=== PATIENT | female | born 1995 | race Caucasian/White ===

== ENCOUNTER 2024-08-27 14:45 | Emergency (ER) | payer MEDICAID, SELFPAY ==
--- OUTSIDE RECORDS SUMMARY | 2024-08-25 12:40 | XMS_ITS | Encounter Summary ---
Author Organization [facility] Address [address], [place] [address] Care Team Providers Care Farm Reporter Name Role Phone Unavailable Primary Care Provider Unavailabl e Reason for Visit * Reason Comments VAGINAL BLEEDING Encounter Details Date Type Department Care Team (Late st Contact Info) Description 08/25/2024 12:40 PM CDT Office Visit [facility] [address] [facility] [address] [place] [address] [place] [address], [place] [id number] Vaginal bleeding affecting early Social History Tobacco Use Types Packs/Day Years Used Date Smoking Tobacco: Never Smokeless Tobacco: Never Tobacco Cessation:Counseling Given: Not Answered Comments Yes Sex and Gender Information Value Date Recorded Sex Assigned at Not on file Legal Sex Female 12:18 PM CDT Gender Identity Not on file Sexual Orientation Not on file documented as of this encounter Last Filed Vital Signs Vital Sign Reading Time Taken Comments Blood Pressure 121/59 08/25/2024 1:12 PM CDT Pulse 69 08/25/2024 1:12 PM CDT Temperature 36.8 C (98.2 F) 08/25/2024 1:12 PM CDT Respiratory Rate 16 08/25/2024 1:12 PM CDT Oxygen Saturation 100% 08/25/2024 1:12 PM CDT Inhaled Oxygen Concentration - - Weight - - Height - - Body Mass Index - - documented in this encounter Progress Notes * Chapo Orozco MD - 08/25/2024 12:40 PM CDT Positive test a few weeks ago, has had vaginal bleeding for the past 4 days. States that she does not have abdominal pain No past medical history on file. Subject 28 years old female presented today to clinic with her , she stated she has proximally between 6-8 weeks , in the last 4 days some bleeding started very light in the last today she usesome pad to change proximally twice a day. There is slightly abdominal discomfort but no major pain, she deny any nausea vomiting, medication she take for her Crohn disease, this is her 4th pregnancyand she has 3 life baby without problem. She did not had any complication with her pregnancies the past Reviewed the system above all other negative Past medical history Crohn disease otherwise healthy Objective BP 121/59 (BP Location: Right Arm, BP Cuff Size: Regular - Long) Pulse 69 Temp 36.8 ??C (98.2 ??F) (Oral) Resp 16 LMP 05/22/2024 SpO2 100% Vital signs stable blood pressure 121/59 her pulse is 69 her respiration 16 Alert oriented pleasant she does not seems to be distress HEENT neck lung cardiovascular or appear normal Abdomen is no rebound no guarding no pain no suprapubic pressure, she deny any urgency frequency burning sensation with urination deny any constipation or diarrhea. Assessment Early with bleeding We did ultrasound Ultrasound show 6 weeks baby pretty uterine anal the only thing baby heartbeat is 62 in this decreased area is bradycardia under 100 beat. At this time there is no any other red flecks Plan Discussed doze finding with the patient, to follow-up that need with OB and also may need close ultrasound follow-up as recommended by OBGYN discussed, patient understands except that worse additional symptom concern question increase it pain or increase it bleeding go to the emergency room otherwise patient stated that is she will follow-up next week with her OB. documented in this encounter Nursing Notes * Yumiko Felix RN - 08/25/2024 12:40 PM CDT Positive test a few weeks ago, has had vaginal bleeding for the past 4 days. States that she does not have abdominal pain documented in this encounter Plan of Treatment Not on file documented as of this encounter Visit Diagnoses Diagnosis Vaginal bleeding affecting early documented in this encounter
--- OUTSIDE RECORDS SUMMARY | 2024-08-25 15:00 | XMS_ITS | Encounter Summary ---
Author Organization [facility] Address [address], [place] [address] Care Team Providers Care Urban Planner Name Role Phone Unavailable Primary Care Provider Unavailabl e Reason for Visit * Procedure/Equipment (Routine) - Incomplete Specialty Diagnoses / Procedures Referred By Gemini t Referred To Contact Diagnoses Vaginal bleeding affecting early Procedures US OB <14 Weeks W EV Single US OB < 14 [place] [address] [place] [address] Phone: tel: fax: Referral ID Status Reason Start Date Expiration Date V isits Requested Visits Authorized [id number] Incomplete 08/25/2024 11/24/2025 1 1 Encounter Details Date Type Department Care Team (Latest Contact Info) Description 08/25/2024 3:00 PM CDT Ancillary Procedure [facility] [address] [address] [address] [place] [id number] [place] [address] [place] [address] Vaginal bleeding affecting early Social History Tobacco Use Types Packs/Day Years Used Date Smoking Tobacco: Never Smokeless Tobacco: Never Comments Yes Sex and Gender Information Value Date Recorded Sex Assigned at Not on file Legal Sex Female 12:18 PM CDT Gender Identity Not on file Sexual Orientation Not on file documented as of this encounter Plan of Treatment Not on file documented as of this encounter Procedures Procedure Name Priority Date/Time Associated Diagnosis Comments US OB <14 WEEKS W EV SINGLE STAT 08/25/2024 2:33 PM CDT Vaginal bleeding affecting early documented in this encounter Results * US OB <14 Weeks W EV Single (08/25/2024 2:33 PM CDT) Anatomical Region Laterality Modality Pelvis Ultrasound Impressions 08/25/2024 2:49 PM CDT 1. Single live intrauterine measuring 6 weeks 0 days by this ultrasound. 2. heart rate of 62 beats per minute compatible with bradycardia. [place] consensus criteria for bradycardia is <100 bpm at 6-14 weeks and <120 bpm at 15-20 weeks gestation. Maternal medicine consultation is recommended for bradycardia over 14 weeks. Consider close follow-up with repeat ultrasound as clinically indicated. Signed by: Rommel Sandhu 08/25/2024 2:49 PM Narrative 08/25/2024 2:49 PM CDT EXAM: US OB <14 WEEKS W EV SINGLE INDICATION: Patient is between 6-8 weeks, she started to have some bleeding in the last 2 days got worse she do at least 2-3 pads change for vaginal bleeding. This is her 4th COMPARISON: None TECHNIQUE: Transabdominal and transvaginal imaging was performed. FINDINGS: Retroflexed uterus. Gestational sac: Unremarkable. August-rump length measures 0.3 cm, corresponding to 6w0d gestational age. Gestational sac location: Normal KRYSTA 04/20/2025 Embryonic/ cardiac activity is identified at 62 bpm. Right Ovary: Measures 3.0 x 2.4 x 2.5 cm and contains a probable corpus luteum. Left Ovary: Measures 2.9 x 1.0 x 2.0 cm and appears unremarkable. No suspicious adnexal masses. Free Fluid: No significant free fluid. GA by LMP Irregular: 13w4d GA by Prior US: n/a GA by today's US: 6w0d KRYSTA by today's US: 04/20/2025 Procedure Note Rommel Sandhu MD - 08/25/2024 EXAM: US OB <14 WEEKS W EV SINGLE INDICATION: Patient is between 6-8 weeks, she started to have some bleedingin the last 2 days got worse she do at least 2-3 pads change for vaginalbleeding. This is her 4th COMPARISON: None TECHNIQUE: Transabdominal and transvaginal imaging was performed. FINDINGS: Retroflexed uterus. Gestational sac: Unremarkable. August-rump length measures 0.3 cm, corresponding to 6w0d gestationalage. Gestational sac location: Normal KRYSTA 04/20/2025 Embryonic/ cardiac activity is identified at 62 bpm. Right Ovary: Measures 3.0 x 2.4 x 2.5 cm and contains a probable corpusluteum. Left Ovary: Measures 2.9 x 1.0 x 2.0 cm and appears unremarkable. No suspicious adnexal masses. Free Fluid: No significant free fluid. GA by LMP Irregular: 13w4d GA by Prior US: n/a GA by today's US: 6w0d KRYSTA by today's US: 04/20/2025 IMPRESSION 1. Single live intrauterine measuring 6 weeks 0 days by thisultrasound. 2. heart rate of 62 beats per minute compatible with fetalbradycardia. [place] consensus criteria for bradycardia is<100 bpm at 6-14 weeks and <120 bpm at 15-20 weeks gestation. Maternalfetal medicine consultation is recommended for bradycardia over 14weeks. Consider close follow-up with repeat ultrasound as clinicallyindicated. Signed by: Rommel Sandhu 08/25/2024 2:49 PM us Chapo Orozco MD [facility] US Final Result documented in this encounter Visit Diagnoses Diagnosis Vaginal bleeding affecting early documented in this encounter
--- OUTSIDE RECORDS SUMMARY | 2024-08-27 14:48 | XMS_ITS | Clinical Summary ---
Author Organization [facility] Address [address], [place] [address] Care Team Providers Care It Account Manager Name Role Phone Unavailable Primary Care Provider Unavailabl e Source Comments You are receiving this document as you are listed as the primary care provider,follow-up provider, or the patient has been referred to you for consultation.This is in compliance with the Medicare and[facility] EHR Incentive Program,which states Providers who transition their patient to another setting of careor provider of care or refers their patient to another provider of care shouldprovide summary care record for each transition of care or referral. [facility] Allergies No known active allergies Medications HUMIRA, 2 PEN, 40 MG/0.4ML AJKT pen-injector kit Inject 40 mg subcutaneously every 14 days. Active Encounters Date Type Department Care Team Description 08/25/2024 3:00 PM CDT Ancillary Procedure [facility] [address] [address] [address] [place] [address] Chapo Orozco MD Vaginal bleeding affecting early 08/25/2024 12:40 PM CDT [facility] [address] [place] [address] Chapo Orozco MD Vaginal bleeding affecting early from Last 3 Months Social History Tobacco Use Types Packs/Day Years Used Date Smoking Tobacco: Never Smokeless Tobacco: Never Tobacco Cessation:Counseling Given: Not Answered Comments Yes Sex and Gender Information Value Date Recorded Sex Assigned at Not on file Legal Sex Female 12:18 PM CDT Gender Identity Not on file Sexual Orientation Not on file Last Filed Vital Signs Vital Sign Reading Time Taken Comments Blood Pressure 121/59 08/25/2024 1:12 PM CDT Pulse 69 08/25/2024 1:12 PM CDT Temperature 36.8 C (98.2 F) 08/25/2024 1:12 PM CDT Respiratory Rate 16 08/25/2024 1:12 PM CDT Oxygen Saturation 100% 08/25/2024 1:12 PM CDT Inhaled Oxygen Concentration - - Weight - - Height - - Body Mass Index - - Plan of Treatment Health Maintenance Due Date Last Done Comments Cervical Cancer Screening Due 1997 Hep C Screening (Preventive Services) 1997 HPV Vaccine (1 - 3-dose series) 2012 HIV Screening (Preventive Services) 2013 Adult Preventive Visit 11/02/2015 DTaP/Tdap/Td Vaccine (1 - Tdap) 2016 HepB Vaccine (1) 2016 COVID-19 Vaccine ( - 2023-2 5 season) 2023 Influenza Vaccine (#1) 2024 Zoster/Shingles Vaccine (1 of 2) 11/02/2047 HepA Vaccine Aged Out No longer eligi ble based on patient's age to complete this topic Hib Vaccine Aged Out No longer eligi ble based on patient's age to complete this topic IPV (Polio) Vaccine Aged Out No longe r eligible based on patient's age to complete this topic MCV4 Vaccine Aged Out No longer eligi ble based on patient's age to complete this topic Meningococcal B Vaccine Aged Out No l onger eligible based on patient's age to complete this topic Pneumococcal Vaccine Aged Out No long er eligible based on patient's age to complete this topic Procedures Procedure Name Priority Date/Time Associated Diagnosis Comments US OB <14 WEEKS W EV SINGLE STAT 08/25/2024 2:33 PM CDT Vaginal bleeding affecting early from Last 3 Months Results * US OB <14 Weeks W EV Single (08/25/2024 2:33 PM CDT) Anatomical Region Laterality Modality Pelvis Ultrasound Impressions 08/25/2024 2:49 PM CDT 1. Single live intrauterine measuring 6 weeks 0 days by this ultrasound. 2. heart rate of 62 beats per minute compatible with bradycardia. [place] consensus criteria for bradycardia is <100 bpm [...] performed. FINDINGS: Retroflexed uterus. Gestational sac: Unremarkable. [place]-rump length measures 0.3 cm, corresponding to 6w0d [...] performed. FINDINGS: Retroflexed uterus. Gestational sac: Unremarkable. Chillum-rump length measures 0.3 cm, corresponding to 6w0d [...] beats per minute compatible with fetalbradycardia. [place] consensus criteria for bradycardia is<100 bpm at 6-14 weeks and <120 bpm at 15-20 weeks gestation. Maternalfetal medicine consultation is recommended for bradycardia over 14weeks. Consider close follow-up with repeat ultrasound as clinicallyindicated. Signed by: Rommel Sandhu 08/25/2024 2:49 PM us Chapo Orozco MD RAD US Final Result from Last 3 Months
--- OUTSIDE RECORDS SUMMARY | 2024-08-27 14:48 | XMS_ITS | Clinical Summary ---
Author Organization [facility] Address [address] [facility] [place] [address] Care Team Providers Care Blister Packing Machine Tender Name Role Phone No Ref-Primary, Physician Primary Care Provider Allergies Active Allergy Reactions Criticality Noted Date Comments Tilactase Rash,GI Disturbance Low 11/05/2013 Rash on face and abdominal cramping. Medications polyethylene glycol (MIRALAX) 17 GM/Dose powderIndications :Crohn's disease (H) Take 1 capful by mouth as needed 238 g 0 4 Active Vit-Fe Fumarate-FA ( MULTIVITAMIN PLUS IRON) 27-0.8 MG TABS Take 1 tablet by mouth daily Active predniSONE (DELTASONE) 10 MG tabletIndications :Crohn's disease of small intestine with intestinal obstruction (H) Take 3 tablets (30 mg) by mouth daily Continue taking this dose until follow up in GI clinic 90 tablet 2 Active Active Problems Problem Noted Date Diagnosed Date Intra-abdominal abscess 10/30/2021 Crohn's disease of ileum with fistula 10/30/2021 Encounter for triage in patient 020 ACP (advance care planning) 10/26/2017 Overweight 10/26/2017 History of small bowel obstruction 201310/22/19 16 Major depressive disorder, recurrent episode, mo derate 10/22/2015 Self mutilating behavior - cutting 10/22/2015 Irritable bowel syndrome 07/12/2014 Crohn's disease 12/02/2013 Resolved Problems Problem Noted Date Diagnosed Date Resolved Date [facility] 10/22/2015 08/08/2023 Small bowel obstruction 11/14/201309/23 Esotropia 07/29/1999 10/22/2015 Overview (11/21/2014): Problem list name updated by automated process. Provider to review NO ACTIVE PROBLEMS 4 Immunizations Immunization Administration Dates Next Due DTAP (<7y) 01/21/2003, 9,05/05/1998,02/21,01/07/1998 01/31/1998 HEPA 10/30/2007,04/26/2007,11/04/1998 HIB (PRP-T) 02/03/1999, 9,03/10/1998,12/2201/21/1999 HepB 01/22/2015, 5,07/12/2014,10/22,1997,1997 Influenza (IIV3) PF 01/21/2003 MMR (MMRII) 01/21/2003,02/03/1999 Mantoux Tuberculin Skin Test 11/16/2013 Meningococcal (Menomune ) 03/05/2011 Meningococcal ACWY (Menveo ) 10/26/2017 OPV, trivalent, live 03/10/1998,01/07/1998 Poliovirus, inactivated (IPV) 01/21/2003, 999 Tdap (Adult) Unspecified Formulation 03/05/2011 Varicella (Varivax) 04/26/2007,11/09/1999 Family History Medical History Relation Comments Osteoarthritis Father knee replacement Coronary Artery Disease Maternal Grandfather Depression Maternal Grandmother Lung Cancer Maternal Grandmother smoker Crohn's Disease Maternal Uncle Depression Mother Diabetes Paternal Grandmother Other - See Comments Sister 1 PCOS Other - See Comments Sister 2 PCOS Relation Status Comments Father Alive Maternal Grandfather Maternal Grandmother Maternal Uncle Mother Alive Paternal Grandfather Paternal Grandmother Alive Sister 1 Alive older Sister 2 Alive older Social History Tobacco Use Types Packs/Day Years Used Date Smoking Tobacco: Former Smokeless Tobacco: Former Alcohol Use Standard Drinks/Week Comments Yes 0 (1 standard drink = 0.6 oz pur e alcohol) monthly Adolescent Education Answer Date Record ed Getting School Help Needed Not on file 12/05 Comments No Sex and Gender Information Value Date Recorded Sex Assigned at Not on file Legal Sex Female 2:58 AM PATIENT SITTER Gender Identity Not on file Sexual Orientation Not on file Occupation Industry Job Start Date Job End Date Not on file Not on file Not on file Not on file Last Filed Vital Signs Vital Sign Reading Time Taken Comments Blood Pressure 119/69 11/03/2021 9:30 AM CDT Pulse 47 11/03/2021 9:30 AM CDT Temperature 36.5 C (97.7 F) 11/03/2021 9:30 AM CDT Respiratory Rate 18 11/03/2021 9:30 AM CDT Oxygen Saturation 98% 11/02/2021 8:33 AM CDT Inhaled Oxygen Concentration - - Weight 65.5 kg (144 lb 4.8 oz) 10/30/2021 5:34 P M CDT Height 152.4 cm (5') 10/30/2021 5:34 PM CDT Body Mass Index 28.18 10/30/2021 5:34 PM CDT Plan of Treatment Health Maintenance Due Date Last Done Comments ANNUAL REVIEW OF HM ORDERS 1997 DEPRESSION ACTION PLAN 1997 COVID-19 VACCINE (#1) 2002 HPV VACCINE (1 - 3-dose series) 2012 HEPATITIS C SCREENING 11/02/2015 YEARLY PREVENTIVE VISIT 10/26/2018 10/27/19 18, 10/22/2015, 01/27/2000, Additional history exists PAP 2018 PHQ-9 02/03/2019 08/04/2018, 09/0 06/2017, 10/22/2015 DTAP/TDAP/TD VACCINE (7 - Td or Tdap) 03/05/2021 03/05/2011, 03/05/2011, 01/21/2003, Additional history exists INFLUENZA VACCINE (#1) 2024 01/21/2003 ADVANCE CARE PLANNING 10/30/2026 10/30/2021 ZOSTER VACCINE (1 of 2) 11/02/2047 HEPATITIS B VACCINE Completed 01/22/2015, 01/22/2015, 08/16/2014, Additional history exists CHLAMYDIA SCREENING Discontinued 10/26/2017 HIV SCREENING Completed 10/26/2017 MENINGITIS VACCINE Aged Out 10/26/2017, 0 03/05/2011, 03/05/2011 No longer eligible based on patient's age to complete this topic PNEUMOCOCCAL VACCINE: PEDIATRICS (0 to 5 YEARS) AND AT-RISK PATIENTS (6 to 49 YEARS) Aged Out No longer eligible based on patient's age to complete this topic Procedures Procedure Name Priority Date/Time Associated Diagnosis Comments CHLAM TRACH/N. GONORRHOEAE RNA TMA ([facility]) Routine 10/26/2017 10:47 AM CDT Screen for STD (sexually transmitted disease) HIV 1/2 AGN SAMMY 4TH GEN WITH REFLEX ([facility]) Routine 10/26/2017 10:47 AM CDT Screen for STD (sexually transmitted disease) from Last 3 Months or Most Recently Relevant to Health Maintenance Results * Chlam Trach/N. Gonorrhoeae RNA TMA([facility] (10/26/2017 10:47 AM CDT) Chlamydia Trachomatis RNA TMA NOT DETECTED NOT DETECTED [facility] Neisseria Gonorrhoeae RNA TMA NOT DETECTED NOT DETECTED [facility] See Note SEE COMMENT [facility] Comment: This test was performed using the APTIMA COMBO2 Assay ([employer] The analytical performance characteristics of this assay, when used to test SurePath specimens have been determined by [facility]. 10/26/2017 10:4 7 AM CDT 10/27/2017 5:09 AM CDT Narrative Resulting Agency Comment Performing Organization Information: [place] [facility] [address] [place] [address] Luis Guajardo Marybeth Krause PA-C LAB - NON-VIKTORIA NON-ANAMARIAO Caroline Final Result [facility] [address] [place] [address] * HIV 1/2 Agn Sammy 4th Gen w Reflex ([facility]) (10/26/2017 10:47 AM CDT) HIV 1/2 Agn Sammy 4th Gen With Reflex NON-REACT MEHRDAD NON-REACT MEHRDAD [facility] Comment: HIV-1 antigen and HIV-1/HIV-2 antibodies were not detected. There is no laboratory evidence of HIV infection. PLEASE NOTE: This information has been disclosed to you from records whose confidentiality may be protected by state law. If your state requires such protection, then the state law prohibits you from making any further disclosure of the information without the specific written consent of the person to whom it pertains, or as otherwise permitted by law. A general authorization for the release of medical or other information is NOT sufficient for this purpose. For additional information please refer to http://education.[employer]/faq/ZRQ231 (This link is being provided for informational/ educational purposes only.) The performance of this assay has not been clinically validated in patients less than 2 years old. 10/26/2017 10:4 7 AM CDT 10/27/2017 5:12 AM CDT Narrative Resulting Agency Comment Performing Organization Information: [place] [facility] [address] [facility] [address] Luis Guajardo M.D. Marybeth Krause PA-C LAB - NON-BEAKER BLOOD [place] Final Result [facility] [address] [place] [address] from Last 3 Months or Most Recently Relevant to Health Maintenance Insurance MEDICA CHOICE MEDICA CHOICE MEDICA CHOICE [facility] MEDICA CHOICE [facility] Directives For more information, please contact: [phone] * Full Code (Latest Code Status on File) Date Activated Date Inactivated Comments 10/30/2021 2:18 PM 11/03/2021 5:51 PM All basic and advanced life-sustaining interventions are performed as appropriate Question Answer Comments Code status determined by: Discussion with patie nt/ legal decision maker * Full Code Date Activated Date Inactivated Comments 11/16/2013 12:10 PM 05/11/2019 5:33 AM Care Teams Blister Packing Machine Tender Relationship Specialty Start Date End Date No Ref-Primary, Physician PCP - General 10/30/21
[2024-08-27 14:56] VITALS: BP 132/86; PULSE 60; RESP 20; TEMP 36.9; O2SAT 98; BMI 32.4
--- NOTE | 2024-08-27 18:11 | ED.FEMALEGU ---
HPI - Female Genitourinary General Time Seen by Provider: 18:11 Date Seen: 08/27/24 Chief complaint: Vaginal Bleeding Stated complaint: 6 weeks /possible miscarriage Time Seen by Provider: 08/27/24 18:11 Source: patient and RN notes reviewed Mode of arrival: ambulatory Limitations: no limitations History of Present Illness HPI Narrative: Hilary is a very pleasant 28-year-old female with 3 previous normal pregnancies who comes to the emergency room with vaginal bleeding and . Patient notes that the bleeding started on TuesdayAugust 22 initially light pink when she wiped but has been increasing. Immediately prior to coming into the ER department while in the waiting room she did pass a very large clot that she suspects is the . She was seen on TuesdayAugust 25 at which time she had an ultrasound at an urgent care through [facility]. She states that it showed the baby but the heart rate was very slow at 60. She has not had fever or chills. She does note that she has been having a cramping and it was particularly tense upon her arrival here but has abated since she passed the large clot. Patient has a history of Crohn's disease and does continue her Humira. She denies fevers chills. She has not been vomiting. Related Data Home Medications ?Medication ?Instructions ?Recorded ?Confirmed adalimumab 40 mg/0.4 mL 40 mg subcut Q2W 08/27/24 08/27/24 subcutaneous pen kit (Humira(CF) Pen) Allergies Allergy/AdvReac Type Severity Reaction Status Date / Time No Known Drug Allergies Allergy Verified 08/27/24 14:56 Review of Systems Status of ROS: Reports: 6 or more systems reviewed and unremarkable except as noted in History and below Const: Denies: fever or chills Cardio: Denies: chest pain, lightheadedness or shortness of breath with exertion Resp: Denies: shortness of breath GI: Reports: abdominal pain; Denies: nausea or vomiting Exam Narrative: Exam Narrative: Patient is alert and oriented. Nontoxic in appearance. No acute distress. External ears eyes nose clear. Heart with regular rate and rhythm. Lungs are clear. Abdomen is soft nontender. Examination of the patient's had a genital area does show a large had with about 75% saturation. No significant clots or bleeding from the vagina at this time. Moving all extremities. Const: Vital Signs, click to edit/add: Vital Signs - 24 hr 08/27/24 14:56 08/27/24 18:12 Temperature 98.5 F Pulse Rate [Pulse Oximeter] 60 84 Respiratory Rate 20 16 Blood Pressure [Ri ght Upper Arm] 132/86 123/89 Pulse Oximetry 98 98 Oxygen Delivery Me thod Room Air Room Air Documenting provider has reviewed patient's vital signs: yes Course Course ED Course: Patient noted to have ultrasound at urgent care 48 hours ago that did show heart activity at approximately 60 beats per minute. Will repeat ultrasound as well as get CBC, basic panel, ABO Rh as well as quantitative hCG. Reevaluation(s) Reevaluation #1: Patient vital signs continue to be stable during her time in the emergency room. Vital Signs Vital signs: Initial Vital Signs Temperature 98.5 F 08/27/24 14:56 Temperature Source Temporal Artery Scan 08/27/24 14:56 Pulse Rate 60 08/27/24 14:56 Respiratory Rate 20 08/27/24 14:56 Blood Pressure 132/86 08/27/24 14:56 Blood Pressure Mean 101 08/27/24 14:56 Pulse Oximetry 98 08/27/24 14:56 Oxygen Delivery Method Room Air 08/27/24 14:56 Vital Signs Temperature 98.5 F 08/27/24 14:56 Pulse Rate 60 08/27/24 14:56 Respiratory Rate 20 08/27/24 14:56 Blood Pressure 132/86 08/27/24 14:56 Pulse Oximetry 98 08/27/24 14:56 Oxygen Delivery Method Room Air 08/27/24 14:56 Temperature 98.5 F 08/27/24 14:56 Pulse Rate 84 08/27/24 18:12 Respiratory Rate 16 08/27/24 18:12 Blood Pressure 123/89 08/27/24 18:12 Pulse Oximetry 98 08/27/24 18:12 Oxygen Delivery Method Room Air 08/27/24 18:12 MDM - Female Genitourinary MDM Narrative Medical decision making narrative: 1. Spontaneous -patient noted to have an ultrasound that does not show any . Spoke with patient about this loss. Will provide some materials about early miscarriage. Recommend follow-up with OBGYN in the next week. Recommend repeat hCG in 48 hours and she already has an appointment for this. Quantitative hCG is 3073. 2. Vaginal bleeding-blood pressure has remained stable. Patient is not tachycardic. Hemoglobin 12.5. Patient is Rh positive 3. Disposition -home at this time. Return for fever, chills, worsening bleeding, lightheadedness, chest pain or shortness of breath. Lab Data Attestation: I reviewed the patient's lab results. Labs: Lab Results 08/27/24 Range/Units 18:54 WBC 11.71 H (4.50-11.00) K/uL RBC 4.54 (4.00-5.20) m/uL Hgb 12.5 (12.0-16.0) gm/dL Hct 37.9 (33.0-51.0) % MCV 84 (80-100) fL MCH 28 (26-34) pg MCHC 33 (32-36) gm/dL RDW Coeff of Pratima 12.5 (11.5-15.5) % Plt Count 372 (140-440) K/uL Neut % (Auto) 73.2 H (42.0-72.0) % Lymph % (Auto) 16.5 L (20-44) % [place] % (Auto) 9.8 (0.0-11.0) % Eos % (Auto) 0.1 (0.0-7.0) % Baso % (Auto) 0.2 (0.0-3.0) % Neut # (Auto) 8.60 H (1.7-7.0) K/uL Lymph # (Auto) 1.90 (0.90-2.90) K/uL [place] # (Auto) 1.10 H (0.00-0.90) K/UL Eos # (Auto) 0.00 (0.00-0.50) K/uL Baso # (Auto) 0.00 (0.00-0.30) K/uL Abs Immat Gran (auto) 0.00 (0.00-0.30) K/uL Imm/Tot Granulo (auto) 0.2 % Sodium 138 (135-149) mmol/L Potassium 3.8 (3.6-5.1) mmol/L Chloride 102 (96-114) mmol/L Carbon Dioxide 23 (20-32) mmol/L Anion Gap 13 (7-15) mEq/L BUN 11 (5-24) mg/dL Creatinine 0.6 (0.5-1.5) mg/dL Estimated Creat Clear 102.06 Estimated GFR 127 ml/min Glucose 86 (60-115) mg/dL Calcium 9.4 (8.4-10.6) mg/dL HCG, Qual Cancelled HCG, Quant 3073.70 mIU/mL Blood Type O Positive Imaging Data Pelvic ultrasound OB: Attestation: I have reviewed the pertinent imaging results. Radiologist's impression: Uterus: Normal in echotexture. No suspicious masses. Endometrium: Hyperechoic endometrial blood products. Endometrial stripe otherwise within normal limits. Intrauterine gestation: No. Right Ovary: Measures 3.1 x 1.8 x 3.0 cm. No suspicious masses. Normal arterial and venous flow on color Doppler imaging. Left ovary: Measures 3.5 x 1.3 x 2.0 cm. No suspicious masses. Normal arterial and venous flow on color Doppler imaging. Cul-de-sac: No free fluid. IMPRESSION: No intrauterine gestation identified. Recommend continued obstetric evaluation, serial beta hCG and repeat pelvic ultrasound in 10-14 days. Discharge Plan Discharge Clinical Impression: Spontaneous , Vaginal bleeding Patient Disposition: Home, Self-Care Condition: Unchanged Additional Instructions: Recommend ibuprofen or Tylenol as needed for cramping. Please follow-up by making appointment with OBGYN. Appointments can be made by calling [phone] Please return to the ER for increased bleeding, for filling a pad in 1 hour, lightheadedness, shortness of breath, rapid heart rate. Prescriptions: No Action Humira(CF) Pen 40 mg/0.4 mL pen injector kit 40 mg subcut Q2W Follow Up/Referrals: Provider,Not a Local [Primary Care Provider, Family Practice] Stand Alone Forms: [email or web address] Info Instructions
[2024-08-27 18:12] VITALS: BP 123/89; PULSE 84; RESP 16; O2SAT 98
--- NOTE | 2024-08-27 18:12 | CRLHL7_ITS ---
For Patients: As a result of the Century Cures Act, medical imaging exams and procedure reports are released immediately into your electronic medical record. You may view this report before your referring provider. If you have questions, please contact your health care provider. INDICATION: Abnormal vaginal bleeding in early . TECHNIQUE: Transvaginal limited obstetric ultrasound examination of the pelvis was performed. Grayscale and color Doppler images were obtained. Transvaginal images were obtained for improved evaluation of the ovaries and endometrial stripe. COMPARISON: None. FINDINGS: Uterus: Normal in echotexture. No suspicious masses. Endometrium: Hyperechoic endometrial blood products. Endometrial stripe otherwise within normal limits. Intrauterine gestation: No. Right Ovary: Measures 3.1 x 1.8 x 3.0 cm. No suspicious masses. Normal arterial and venous flow on color Doppler imaging. Left ovary: Measures 3.5 x 1.3 x 2.0 cm. No suspicious masses. Normal arterial and venous flow on color Doppler imaging. Cul-de-sac: No free fluid. IMPRESSION: No intrauterine gestation identified. Recommend continued obstetric evaluation, serial beta hCG and repeat pelvic ultrasound in 10-14 days. Dictated by Carlos Singletary MD @ 08/27/2024 7:30:31 PM (Electronically Signed)
[2024-08-27 19:15] LABS: Hematocrit 37.9 % (33.0-51.0); Hemoglobin* 12.5 gm/dL (12.0-16.0); Immature Granulocytes Pct Auto 0.2 %; Mean Corpuscular HGB Conc 33 gm/dL (32-36); Mean Corpuscular Hemoglobin 28 pg (26-34); Mean Corpuscular Volume 84 fL (80-100); RDW Coefficient of Variation % 12.5 % (11.5-15.5); Red Blood Count 4.54 m/uL (4.00-5.20); White Blood Count* 11.71 K/uL (4.50-11.00)
[2024-08-27 19:19] LABS: Immature Granulocytes Abs Auto 0.00 K/uL (0.00-0.30); Lymphocytes Absolute Auto 1.90 K/uL (0.90-2.90); Slide Review Reflex No
[2024-08-27 19:37] LABS: Chloride* 102 mmol/L (96-114); Sodium* 138 mmol/L (135-149)
[2024-08-27 19:38] LABS: Potassium* 3.8 mmol/L (3.6-5.1)
[2024-08-27 19:40] LABS: Blood Urea Nitrogen* 11 mg/dL (5-24); Creatinine* 0.6 mg/dL (0.5-1.5); Est. Creatinine Clearance* 102.06; Estimated Glomerular Filt Rate 127 ml/min
[2024-08-27 19:41] LABS: Anion Gap 13 mEq/L (7-15); Calcium* 9.4 mg/dL (8.4-10.6); Carbon Dioxide* 23 mmol/L (20-32); Glucose* 86 mg/dL (60-115)
[2024-08-27 20:24] LABS: HCG Quantitative* 3073.70 mIU/mL
== END 2024-08-27 20:33 | disposition home or self-care (01) ==
PROVIDERS: Emergency Provider Family Medicine
DX: O03.9 Complete or unspecified spontaneous abortion without complication (principal)
CPT/HCPCS: 36415; 76817; 80048; 84702; 84703; 85025; 86900; 86901; 99284

== ENCOUNTER 2024-08-29 08:37 | Outpatient (CLI) | payer MEDICAID, SELFPAY | END 2024-08-29 08:38 | disposition home or self-care (01) | LOC: NFLDREF 09-02 06:34 | PROVIDERS: Visit Provider Advanced Practice Midwife | DX: O03.9 Complete or unspecified spontaneous abortion without complication (principal) | CPT/HCPCS: 84702 ==

== ENCOUNTER 2024-11-16 12:50 | Outpatient (CLI) | payer MEDICAID, SELFPAY ==
--- NOTE | 2024-11-16 13:00 | CRLHL7_ITS ---
For Patients: As a result of the Cures Act, medical imaging exams and procedure reports are released immediately into your electronic medical record. You may view this report before your referring provider. If you have questions, please contact your health care provider. OB ULTRASOUND FIRST TRIMESTER, TRANSVAGINAL INDICATION: Dating and viability. TECHNIQUE: Real time gimenez scale imaging of the fetus was performed. Transvaginal imaging performed. LMP: Unknown, patient had a miscarriage in August 2024. Previous US: No. CRL: N/A. FHR: N/A. Gestational sac: 2.17 cm. Yolk sac: N/V. Right ovary: Within normal limits. 3.3 x 2.4 x 1.8 cm. CL. Left ovary: Within normal limits. 3.5 x 1.7 x 1.6 cm. IMPRESSION: Intrauterine gestational sac is present with a mean sac diameter of 2.2 cm, 7 weeks 1 day. No yolk sac or pole. No ectopic . Follow-up in 2 weeks recommended. Suleiman Hernandez M.D. Diagnostic Radiologist [email or web address] SP/Dictated by: Suleiman Hernandez MD @ 11/16/2024 4:31:00 PM (Electronically Signed)
== END 2024-11-16 12:51 | disposition home or self-care (01) ==
PROVIDERS: Visit Provider Advanced Practice Midwife
DX: Z34.91 Encounter for supervision of normal pregnancy, unspecified, first trimester (principal); Z3A.01 Less than 8 weeks gestation of pregnancy
CPT/HCPCS: 76817

== ENCOUNTER 2024-11-30 13:04 | Outpatient (CLI) | payer MEDICAID, SELFPAY ==
--- NOTE | 2024-11-30 13:00 | CRLHL7_ITS ---
For Patients: As a result of the Cures Act, medical imaging exams and procedure reports are released immediately into your electronic medical record. You may view this report before your referring provider. If you have questions, please contact your health care provider. INDICATION: Dating and viability. Unknown LMP. Bleeding and passing clots last week. TECHNIQUE: Transvaginal OB pelvic ultrasound. COMPARISON: 11/16/2024. FINDINGS: Previous intrauterine gestational sac is no longer visualized. There is trace endometrial fluid. Uterus as imaged is otherwise unremarkable. Right ovary is 3.5 x 2.5 x 2.1 cm and is within normal limits. Normal-appearing color flow in the right ovary. Right adnexal region is unremarkable. Left ovary is 1.8 x 1.9 x 2.1 cm and is within normal limits. Normal-appearing color flow in the left ovary. Left adnexal region is unremarkable. No significant free fluid. IMPRESSION: 1. No living intrauterine . 2. Trace endometrial fluid may reflect blood products. Dictated by Gerard Moss MD @ 11/30/2024 2:08:06 PM Dictated by: Gerard Moss MD @ 11/30/2024 14:08:23 (Electronically Signed)
== END 2024-11-30 13:05 | disposition home or self-care (01) ==
LOC: US 13:05
PROVIDERS: Visit Provider Advanced Practice Midwife
DX: O36.80X0 Pregnancy with inconclusive fetal viability, not applicable or unspecified (principal)
CPT/HCPCS: 76817